=== PATIENT | male | born 1975 | race Hispanic/Latino ===

== ENCOUNTER 2020-06-03 09:25 | Emergency (ER) | payer SELFPAY ==
[2020-06-03 10:01] LABS: Absolute Lymphocytes (CBC) 1.6 K/uL (0.7-4.9); Basophils % 0.6 % (0-1.3); Hematocrit 41.9 % (39.6-49.0); Lymphocytes % 28.9 % (15.3-44.8); MPV 8.7 fL (7.6-11.3); RBC Red Blood Cell Count 4.89 M/uL (4.33-5.43)
[2020-06-03 10:02] LABS: Protime INR 1.02
--- NOTE | 2020-06-03 10:08 | RAD REPORT ---
EXAM DESCRIPTION: CT - Head Brain Wo Cont - 06/03/2020 9:52 am CLINICAL HISTORY: Seizure COMPARISON: None TECHNIQUE: Computed axial tomography of the head was obtained. IV contrast was not requested. All CT scans are performed using dose optimization technique as appropriate and may include automated exposure control or mA/KV adjustment according to patient size. FINDINGS: An intracranial bleed is not seen . The ventricles are normal in caliber. No extra-axial fluid collection is noted. Small basal ganglia calcifications are benign Fluid within the sinuses/ mastoids is not seen. IMPRESSION: No acute intracranial abnormality is seen. If patient's symptoms persist MRI of the bra in would be recommended.
[2020-06-03] MEDS ORDERED: NA CHLORIDE 0.9% 1,000 ML ONE (10:16)
[2020-06-03 10:27] LABS: Albumin 3.4 g/dL (3.4-5.0); Bilirubin Direct 0.1 mg/dL (0-0.2); Bilirubin Total 0.3 mg/dL (0.2-1.0); Potassium 3.9 mmol/L (3.5-5.1)
[2020-06-03 10:40] LABS: Barbiturates NEGATIVE (NEGATIVE); Benzodiazepines NEGATIVE (NEGATIVE); Cocaine NEGATIVE (NEGATIVE); METHAMPHETAM NEGATIVE (NEGATIVE); Methadone NEGATIVE (NEGATIVE); Opiates NEGATIVE (NEGATIVE); Phencyclidine NEGATIVE (NEGATIVE); THC Cannibis NEGATIVE (NEGATIVE)
--- NOTE | 2020-06-03 10:46 | EDPHYS ---
Physician Documentation [facility] Name: Rolando Leal Age: 45 yrs Sex: Male : 1975 Arrival Date: 06/03/2020 Time: 09:27 Bed 3 Private MD: ED Physician Omid Stahl HPI: 06/03 09:37 This 45 yrs old Male presents to ER via EMS with complaints of Probable jmm Seizure. 09:37 Character of seizure(s): Loss of consciousness: the patient experienced loss of jmm consciousness, Motor activity: generalized. Seizure onset: just prior to arrival. Associated injury: The patient did not suffer any apparent associated injury. Historical: - Allergies: 09:30 No Known Allergies; jl7 - Home Meds: 09:30 None [Active]; jl7 - PMHx: 09:30 None; jl7 - PSHx: 09:30 None; jl7 - Immunization history:: Adult Immunizations unknown. - Social history:: Smoking status: Patient denies any tobacco usage or history of. ROS: 09:37 Constitutional: Negative for fever, chills, and weight loss, Cardiovascular: Negative [facility] for chest pain, palpitations, and edema, Respiratory: Negative for shortness of breath, cough, wheezing, and pleuritic chest pain. 09:37 Neuro: Positive for seizure activity. 09:37 All other systems are negative. Exam: 09:37 Constitutional: This is a well developed, well nourished patient who is awake, alert, jmm and in no acute distress. Head/Face: atraumatic. Eyes: EOMI, no conjunctival erythema appreciated ENT: Moist Mucus Membranes Neck: Trachea midline, Supple Chest/axilla: Normal chest wall appearance and motion. Cardiovascular: Regular rate and rhythm. No edema appreciated Respiratory: Normal respirations, no respiratory distress appreciated Abdomen/GI: Non distended, soft Back: Normal ROM Skin: General appearance color normal MS/ Extremity: Moves all extremities, no obvious deformities appreciated, no edema noted to the lower extremities Neuro: Awake and alert, normal gait Psych: Behavior is normal, Mood is normal, Patient is cooperative and pleasant 09:48 ECG was reviewed by the Attending Physician. [facility] Vital Signs: 09:27 BP 154 / 128; Pulse 85; Resp 19 S; Temp 98.2(TE); Pulse Ox 99% on R/A; Pain 0/10; jl7 09:34 BP 127 / 90; Pulse 78; Resp 17; Pulse Ox 97% ; jl7 10:40 BP 125 / 95; Pulse 61; Resp 15; Pulse Ox 97% ; Pain 0/10; jl7 [place] Coma Score: 09:30 Eye Response: spontaneous(4). Verbal Response: confused(4). Motor Response: obeys jl7 commands(6). Total: 14. MDM: 09:29 Patient medically screened. [facility] 10:42 Data reviewed: vital signs, nurses notes. Counseling: I had a detailed discussion with danielito the patient and/or guardian regarding: the historical points, exam findings, and any diagnostic results supporting the discharge/admit diagnosis, lab results, radiology results, the need for outpatient follow up, to return to the emergency department if symptoms worsen or persist or if there are any questions or concerns that arise at home. ED course: Patient is alert and non toxic in appearance in the ED. Appears more likely syncopal episode. Patient advised to follow up with cardiology for reevaluation. Patient understood and agrees with the plan of care. . 06/03 09:35 Order name: Acetaminophen; Complete Time: 10:46 [facility] 06/03 09:35 Order name: Basic Metabolic Panel; Complete Time: 10:46 [facility] 06/03 09:35 Order name: CBC with Diff; Complete Time: 10: [facility] 06/03 09:35 Order name: ETOH Level; Complete Time: 10: [facility] 06/03 09:35 Order name: Hepatic Function; Complete Time: 10:46 [facility] 06/03 09:35 Order name: PT-INR; Complete Time: 10:19 [facility] 06/03 09:35 Order name: Ptt, Activated; Complete Time: 10:19 [facility] 06/03 09:35 Order name: Salicylate; Complete Time: 10:46 [facility] 06/03 09:35 Order name: Urine Drug Screen; Complete Time: 10:46 [facility] 06/03 09:35 Order name: EKG; Complete Time: 09:36 [facility] 06/03 09:35 Order name: EKG - Nurse/Tech; Complete Time: 09:37 [facility] 06/03 09:36 Order name: CT Head Brain wo Cont; Complete Time: 10:19 [facility] 06/03 10:39 Order name: Urine Dipstick--Ancillary (enter results); Complete Time: 10:49 bd 06/03 09:35 Order name: IV Saline Lock; Complete Time: 09:50 [facility] 06/03 09:35 Order name: Labs collected and sent; Complete Time: 09:50 [facility] 06/03 09:35 Order name: Urine Dipstick-Ancillary (obtain specimen); Complete Time: 10:23 jm EC:48 Rate is 71 beats/min. Rhythm is regular. QRS [place] is Normal. [place] interval is normal. QRS jmm interval is normal. QT interval is normal. No Q waves. T waves are Normal. No ST changes noted. Reviewed by me. Administered Medications: 10:00 Drug: NS 0.9% 1000 ml Route: IV; Rate: 1 bolus; Site: left antecubital; jl7 10:50 Follow up: Response: No adverse reaction; IV Status: Completed infusion; IV Intake: jl7 800ml Disposition: 06/04 06:24 Co-signature as Attending Physician, Omid Stahl MD I agree with the assessment and [facility] plan of care. Disposition: 06/03/20 10:45 Discharged to Home. Impression: Syncope and collapse. - Condition is Stable. - Discharge Instructions: Syncope. - Medication Reconciliation Form, Thank You Letter, Antibiotic Education, Prescription Opioid Use form. - Follow up: Israel Winchester MD; When: 2 - 3 days; Reason: Recheck today's complaints, Continuance of care, Re-evaluation by your physician. Signatures: Dispatcher [employer] Omid Monique MD MD cha Mickail, Joel, PA PA jmm Leal, Jahala RN RN jl7 Corrections: (The following items were deleted from the chart) 06/03 11:21 10:45 06/03/2020 10:45 Discharged to Home. Impression: Syncope and collapse. Condition jl7 is Stable. Forms are Medication Reconciliation Form, Thank You Letter, Antibiotic Education, Prescription Opioid Use. Follow up: Israel Winchester; When: 2 - 3 days; Reason: Recheck today's complaints, Continuance of care, Re-evaluation by your physician. [facility]
--- NOTE | 2020-06-03 10:46 | ER ---
Nurse's Notes [facility] Name: Rolando Leal Age: 45 yrs Sex: Male : 1975 Arrival Date: 06/03/2020 Time: 09:27 Bed 3 Private MD: Diagnosis: Syncope and collapse Presentation: 06/03 09:27 Chief complaint: EMS states: At work and slumped over and hit his head, family reported jl7 he had a seizure a few days ago but no medical history. Ebola Screen: No symptoms or risks identified at this time. Initial Sepsis Screen: Does the patient meet any 2 criteria? No. Patient's initial sepsis screen is negative. Does the patient have a suspected source of infection? No. Patient's initial sepsis screen is negative. Risk Assessment: Do you want to hurt yourself or someone else? Patient reports no desire to harm self or others. Onset of symptoms was June 03, 2020. Care prior to arrival: IV initiated. 20 GA, in the left antecubital area. 09:27 Method Of Arrival: EMS: [facility] jl7 09:27 Acuity: MIHIR 2 jl7 09:30 Coronavirus screen: At this time, unable to obtain information related to travel jl7 outside the [place] At this time, the client does not indicate any symptoms associated with coronavirus-19. Triage Assessment: 09:30 General: Appears in no apparent distress. uncomfortable, Behavior is calm, cooperative, jl7 appropriate for age. Pain: Denies pain. Neuro: Level of Consciousness is awake, alert, obeys commands, Oriented to person, place, situation. Cardiovascular: Patient's skin is warm and dry. Respiratory: Airway is patent Respiratory effort is even, labored, Respiratory pattern is regular, symmetrical. Derm: Skin is pink, warm \T\ dry. Historical: - Allergies: 09:30 No Known Allergies; jl7 - Home Meds: 09:30 None [Active]; jl7 - PMHx: 09:30 None; jl7 - PSHx: 09:30 None; jl7 - Immunization history:: Adult Immunizations unknown. - Social history:: Smoking status: Patient denies any tobacco usage or history of. Screenin:50 Abuse screen: Denies threats or abuse. Denies injuries from another. Nutritional jl7 screening: No deficits noted. Tuberculosis screening: No symptoms or risk factors identified. Fall Risk Secondary diagnosis (15 points) seizures, IV access (20 points). Assessment: 09:50 General: See triage assessment. jl7 10:40 Reassessment: Patient appears in no apparent distress at this time. No changes from jl7 previously documented assessment. Patient and/or family updated on plan of care and expected duration. Pain level reassessed. Patient is alert, oriented x 3, equal unlabored respirations, skin warm/dry/pink. Vital Signs: 09:27 BP 154 / 128; Pulse 85; Resp 19 S; Temp 98.2(TE); Pulse Ox 99% on R/A; Pain 0/10; jl7 09:34 BP 127 / 90; Pulse 78; Resp 17; Pulse Ox 97% ; jl7 10:40 BP 125 / 95; Pulse 61; Resp 15; Pulse Ox 97% ; Pain 0/10; jl7 [place] Coma Score: 09:30 Eye Response: spontaneous(4). Verbal Response: confused(4). Motor Response: obeys jl7 commands(6). Total: 14. ED Course: 09:27 Patient arrived in ED. jl7 09:27 Tyler Dowling PA is PHCP. [facility] 09:27 Omid Stahl MD is Attending Physician. [facility] 09:30 Triage completed. jl7 09:30 Arm band placed on right wrist. jl7 09:30 Patient has correct armband on for positive identification. Placed in gown. Bed in low jl7 position. Call light in reach. Side rails up X2. Seizure precautions initiated. phototypesetting equipment monitor on. Pulse ox on. NIBP on. 09:34 Amadou Arteaga RN is Primary Nurse. jl7 09:51 CT Head Brain wo Cont In Process Unspecified. EDMS 09:51 Initial lab(s) drawn, by me, sent to lab. EKG done, by ED staff, reviewed by Tyler ABRAHAM. Maintain EMS IV. Dressing intact. Good blood return noted. Site clean \T\ dry. Gauge \T\ site: 20 left AC. 10:45 Israel Winchester MD is Referral Physician. jm 10:56 No provider procedures requiring assistance completed. IV discontinued, intact, jl7 bleeding controlled, No redness/swelling at site. Pressure dressing applied. Administered Medications: 10:00 Drug: NS 0.9% 1000 ml Route: IV; Rate: 1 bolus; Site: left antecubital; jl7 10:50 Follow up: Response: No adverse reaction; IV Status: Completed infusion; IV Intake: jl7 800ml Intake: 10:50 IV: 800ml; Total: 800ml. jl7 Outcome: 10:45 Discharge ordered by . danielito 10:56 Discharged to home ambulatory. jl7 10:56 Condition: stable 10:56 Discharge instructions given to patient, Instructed on discharge instructions, follow up and referral plans. Demonstrated understanding of instructions, follow-up care. 11:21 Patient left the ED. jl7 Signatures: Dispatcher [employer] Tyler Abbasi PA PA jmm Leal, Jahala, RN RN jl7
[2020-06-03 10:48] LABS: Urine Blood TRACE (NEG); Urine Glucose NEGATIVE (NEG); Urine Protein 2+ (NEG); Urine Specific Gravity 1.025 (1.005-1.030)
[2020-06-03 11:31] VITALS: TEMP 98.2
[2020-06-03 11:32] VITALS: O2SAT 97
[2020-06-03 11:33] VITALS: BP 125/95
--- NOTE | 2020-06-03 17:13 | EKG ---
Test Date: 2020-06-03 Test Time: 09:46:15 [employer]: FLEX MEASUREMENT RESULTS: Intervals: Rate: 71 MI: 166 QRSD: 80 QT: 390 QTc: 423 Bryant: P: 35 MI: 166 QRS: 49 T: 80 INTERPRETIVE STATEMENTS: Normal sinus rhythm Normal ECG No previous ECG available for comparison Electronically Signed On 06-03-20 17:12:46 ELECTRONIC MASKING SYSTEM OPERATOR by Israel Winchester
== END 2020-06-03 11:21 | disposition home or self-care (01) ==
LOC: ER 09:25
DX: R55 Syncope and collapse (principal)
CPT/HCPCS: 36415; 70450; 80048; 80076; 80307; 80320; 80329; 81003; 85025; 85610; 85730; 93005; 96360; 99284; J7030